=== PATIENT | male | born 1985 | race African-American/Black ===

== ENCOUNTER 2016-12-12 10:34 | Inpatient (IN) | payer MEDICAID ==
[~2016-12-12] VITALS: Ht 176.5 cm; Wt 74.8 kg
[2016-12-12 11:17] LABS: BASOPHILS % 0.9 % (0.0-2.0); EOSINOPHILS % 3.7 % (0.0-5.0); HEMATOCRIT. 45.6 % (42.0-52.0); LYMPHOCYTES % 37.1 % (20.0-50.0); MEAN CORPUSCULAR HEMOGLOBIN 31.2 pg (28.0-32.0); MEAN CORPUSCULAR VOLUME 101.3 fL (80.0-94.0); MEAN PLATELET VOLUME 8.8 fl (7.4-10.4); MONOCYTES % 9.5 % (2.0-8.0); NEUTROPHILS % 48.8 % (40.0-76.0); PLATELET 275 x1000/uL (130-400); RED CELL DISTRIBUTION WIDTH 14.9 % (11.6-14.6)
[2016-12-12] MEDS ORDERED: SODIUM CHLORIDE 0.9% 1,000 ML IV ONE (11:23)
[2016-12-12 11:27] LABS: CHLORIDE 106 mEq/L (98-107); ETHANOL BLOOD < 10 mg/dL
[2016-12-12 11:31] LABS: CARBAMAZEPINE < 0.5 ug/mL (4-12); PHENOBARBITAL < 2.1 ug/mL (15.0-40.0)
[2016-12-12 11:32] LABS: CARBON DIOXIDE 8 mEq/L (21-32)
[2016-12-12] MEDS ORDERED: LEVETIRACETAM 1,000 MG in SODIUM CHLORIDE 0.9% 100 ML IV ONE (11:45)
[2016-12-12 13:00] LABS: BG BASE EXCESS -3.3 mmol/L (-2.0-2.0); BG FRACTION INSPIRED OXYGEN 21; BG METHEMOGLOBIN 0.3 % (0.0-1.5); BG OXYGEN SATURATION 95.9 % (92.0-98.5); BG OXYHEMOGLOBIN 94.7 % (94.0-97.0); BG PH 7.317 (7.350-7.450); BG PO2 89.4 mmHg (75.0-100.0); BG SAMPLE SITE RIGHT RADIAL; BG TOTAL HEMOGLOBIN 13.6 g/dL (12.0-18.0); BG VENT MODE ROOM AIR
[2016-12-12] MEDS ORDERED: ACETAMINOPHEN 325MG TABLET PO PRN (13:45)
[2016-12-12] MEDS ORDERED: LORAZEPAM 2MG/ML CPJ IV PRN (13:45)
[2016-12-12] MEDS ORDERED: KETOROLAC 15MG/ML VIAL IV PRN (13:45)
[2016-12-12] MEDS ORDERED: ONDANSETRON HCL 4MG/2ML VIAL IV PRN (13:45)
[2016-12-12] MEDS ORDERED: GUAIFENESIN 200MG/10ML SUGAR FREE UDC PO PRN (13:45)
[2016-12-12] MEDS ORDERED: NITROGLYCERIN 0.4MG TABLET SL SL PRN (13:45)
[2016-12-12] MEDS ORDERED: IPRATROPIUM/ALBUTEROL 0.5-3(2.5)MG/3ML NEB INH PRN (13:45)
[2016-12-12] MEDS ORDERED: MAGNESIUM/ALUMINUM HYDROXIDE/SIMETHICONE 30ML UDC PO PRN (13:45)
[2016-12-12] MEDS ORDERED: CLONIDINE 0.1MG TABLET PO PRN (13:45)
[2016-12-12 14:02] LABS: CLARITY URINE CLEAR (CLEAR); COLOR URINE YELLOW (YELLOW); GLUCOSE URINE NEGATIVE (NEGATIVE); KETONES URINE NEGATIVE (NEGATIVE); LEUKOCYTE ESTERASE URINE NEGATIVE (NEGATIVE); NITRITE URINE NEGATIVE (NEGATIVE); OCCULT BLOOD URINE 1+ (NEGATIVE); PROTEIN URINE TRACE (NEGATIVE); SPECIFIC GRAVITY URINE 1.019 (1.005-1.030); UROBILINOGEN URINE 0.2 E.U./dL (0.2-1.0)
[2016-12-12 14:35] LABS: *AMPHETAMINES SCREEN URINE NEGATIVE (NEGATIVE); *BARBITURATES SCREEN URINE NEGATIVE (NEGATIVE); *BENZODIAZEPINES SCREEN URINE PRESUMTIVE POSITIVE (NEGATIVE); *COCAINE SCREEN URINE PRESUMTIVE POSITIVE (NEGATIVE); CANNABINOID URINE SCREEN PRESUMTIVE POSITIVE (NEGATIVE); METHADONE URINE SCREEN NEGATIVE (NEGATIVE); OPIATES URINE SCREEN NEGATIVE (NEGATIVE); PHENCYCLIDINE URINE SCREEN NEGATIVE (NEGATIVE)
[2016-12-12 15:05] LABS: CARBON DIOXIDE 23 mEq/L (21-32); CHLORIDE 110 mEq/L (98-107)
[2016-12-12 15:09] LABS: CREATINE KINASE 621 IU/L (39-308)
[2016-12-12 15:14] LABS: FOLIC ACID (FOLATE) SERUM 10.2 ng/mL (>5.38)
[2016-12-12 18:27] VITALS: BP 115/53
[2016-12-12 20:00] VITALS: BP 107/55
[2016-12-12] MEDS ORDERED: ZOLPIDEM TARTRATE 5MG TABLET PO PRN (21:00)
[2016-12-12] MEDS ORDERED: FAMOTIDINE 20MG/2ML VIAL IV SCH (21:00)
[2016-12-12] MEDS: LEVETIRACETAM 500MG TABLET PO SCH (21:34)
[2016-12-12 23:51] VITALS: BP 102/55
[2016-12-13] VITALS: BP 97/64
[2016-12-13 04:00] VITALS: BP 98/64
[2016-12-13] MEDS: LEVETIRACETAM 500MG TABLET PO SCH (08:32)
[2016-12-13] MEDS ORDERED: PANTOPRAZOLE SODIUM 40 MG/VIAL IV SCH (09:00)
[2016-12-13 09:57] LABS: CARBON DIOXIDE 26 mEq/L (21-32); CHLORIDE 106 mEq/L (98-107)
[2016-12-13 11:31] VITALS: BP 115/73
== END 2016-12-13 11:55 | disposition home or self-care (01) | DRG 53 ==
LOC: EDBEDREQ 11:42 → ER 12:03 → EDBD 12:32 → 6WST 12:32 → EDBEDREQ 12:33 → EDBEDREQTM 12:33 → ENRESERV 17:27
PROVIDERS: ADMIT Internal Medicine; ATTEND Internal Medicine
DX: G40.89 Other seizures (principal); E87.2 Acidosis
CPT/HCPCS: 36415; 36600; 70450; 72125; 80048; 80053; 80156; 80165; 80184; 80185; 80305; 81001; 82375; 82550; 82607; 82746; 82805; 82962; 83036; 85025; 93005; 96361; 96365; 96375; 99285; C9113; G0482; J1885; J1953; J3490; J7030; J7050